=== PATIENT | male | born 1990 | race Caucasian/White ===

== ENCOUNTER 2021-06-09 06:14 | Emergency (ER) | payer SELFPAY ==
[2021-06-09 06:21] VITALS: BP 124/85; PULSE 64; RESP 16; TEMP 36.4; O2SAT 97; BMI 28.8
--- NOTE | 2021-06-09 06:24 | PC.NURSE ---
pt states he is allergic to all steroids and that they make him extremely violent
--- NOTE | 2021-06-09 07:25 | CT_ITS ---
WS: [id number] CT HEAD TECHNIQUE: Noncontrast CT of the head obtained from the skullbase to the vertex. CLINICAL INFORMATION: severe L BUSTILLOS/L ear pain COMPARISON: None. DLP: 861.[address] scans at [facility] use at least one of these dose optimization techniques: automated e xposure control; mA and/or kV adjustment per patient size (includes targeted exams where dose is matc hed to clinical indication); or iterative reconstruction. FINDINGS: No evidence of intracranial hemorrhage or mass effect. Ventricular system and basal cisterns are vilchis nt. No extra-axial fluid collections. No evidence of mass or mass effect. Normal mack-white different iation. Paranasal sinuses and mastoid air cells are well aerated. .Normal visualized soft tissues. CT/CT head wo con* [id number] IMPRESSION: 1. No evidence of intracranial hemorrhage or mass effect. 2. No acute intracranial findings.
--- NOTE | 2021-06-09 07:26 | ED_ITS ---
HPI - Headache General: Chief Complaint: Headache Stated Complaint: THROBBING HEAD PAIN Time Seen by Provider: 06/09/21 07:00 Source: patient Mode of arrival: ambulatory Limitations: no limitations History of Present Illness: HPI Narrative: Patient is a 30-year-old male who presents to ED today with a complaint of severe left otalgia and a left-sided headache. Patient states pain began a few days ago and he described as mild that was alleviated by taking OTC ibuprofen. He states over the past 24 hours pain has become constant and severe. He describes the pain as throbbing in nature. States pain radiates through left taoist, left ear, and left jaw. Patient states he has had headaches previously but nothing that was similar to this. He is currently rating his pain at a 9/10. He denies any ear discharge. No tinnitus or hearing loss. No dizziness/vertigo. No nausea/vomiting/gait instability. Reports pain is worse with light/sound. Denies brief excruciating shock-like pains. MD elicited complaint: headache Location: left Severity: severe Pain scale (0-10): 9 Quality & Timing: throbbing Exacerbating factors: light and noise Relieving factors: nothing Associated symptoms: Reports other (L ear pain); Deny chest pain, confusion, fever(s), malaise, nausea, rash or vomiting Review of Systems Const: Denies: fever(s), chills, body aches, fatigue or malaise Eyes: Reports: photophobia; Denies: change in vision, blurry vision, blind spots, eye discomfort, eye discharge, eye redness, floaters or seeing flashes ENMT: Reports: ear or mastoid pain; Denies: throat pain, odynophagia, dental pain, ear discharge, change in hearing, tinnitus, disequilibrium, nasal discharge, nasal congestion, epistaxis, post nasal drip or sinus pain Card: Denies: chest pain Resp: Denies: dyspnea GI: Denies: abdominal pain, nausea, vomiting or diarrhea Musc: Denies: neck pain Skin/Breast: Denies: rash Neuro: Reports: headache(s); Denies: numbness in extremities, weakness in extremities, sensory changes, dizziness, vertigo or confusion Physical Exam Const: COMMON NORMALS: average body habitus, patient oriented x3, no limitations, healthy appearing, alert and well nourished GENERAL APPEARANCE: cooperative and in distress (appears uncomfortable secondary to pain) ORIENTATION/CONSCIOUSNESS: Yes awake, Yes oriented to person, Yes oriented to place and Yes oriented to time HENMT: COMMON NORMALS: normocephalic, atraumatic, hearing grossly normal bilaterally, external ears normal, EAC's normal, TM's normal bilaterally and Normal external nose present HEAD & SCALP: normal to inspection, normocephalic and atraumatic FACE & SINUS: normal facial exam and sinuses nontender NOSE: Normal external nose present EXTERNAL EAR: Yes external ears normal EXTERNAL AUDITORY CANAL: EAC's normal TYMPANIC MEMBRANE: TM's normal bilaterally THROAT: posterior oropharynx normal OTHER: normal TMJ Eye: COMMON NORMALS: Equal, round and reactive pupils present and EOMs intact bilaterally GENERAL EYE: appearance normal, both eyes and all related structures PUPIL: Yes Equal, round and reactive pupils present Neck/C-Spine: COMMON NORMALS: full ROM and no lymphadenopathy GENERAL: Yes normal visual inspection, No anterior neck swelling and No submandibular swelling Neuro: PASHA COMA SCALE: document GCS findings [place] coma scale eye opening: Spontaneous [place] coma scale verbal response: Orientated [place] coma scale motor response: Obey commands [place] coma scale total score: 15 COMMON NORMALS: patient oriented x3, CN's II-XII intact bilaterally, moves all extremities, no focal motor deficits, no sensory deficits noted and gait normal SENSORIUM/ORIENTATION: Yes alert, Yes oriented to person, Yes oriented to place and Yes oriented to time Skin: COMMON NORMALS: no rashes or lesions noted GENERAL SKIN EXAM: no rashes or lesions noted Course Vital Signs: Vital signs: Vital Signs Temperature 97.6 F 06/09/21 06:21 Pulse Rate 60 06/09/21 09:31 Respiratory Rate 16 06/09/21 09:31 Blood Pressure 125/88 06/09/21 09:31 Pulse Oximetry 98 06/09/21 09:31 MDM - Headache MDM Narrative: Medical decision making narrative: BUSTILLOS down from a 02/21 to a 08/21. Will set up with PCP for further evaluation/treatment if HAs persist. Patient had normal ear exam. History is not consistent with trigeminal neuralgia, acoustic/vestibular neuritis, labyrinthitis, mastoiditis, acoustic neuroma, or giant cell arteritis. Return to ED precautions given. Discharge Plan Discharge Patient Disposition: Home Clinical Impression: Headache Qualifiers: Headache type: unspecified Headache chronicity pattern: acute headache Intractability: not intractable Qualified Code(s): R51.9 - Headache, unspecified Condition: Stable Discharge Orders: Discharge ED (Routine); Ordered 06/09/21 Ordered By: Goldie Mott Patient Instructions: Acute Headache (DC) Coding Level of Care Code ED Business Management Intern for Chg Fwd Exam Detailed
[2021-06-09] MEDS: ketorolac 60 mg/2 mL INJ 30 MG IVP (07:38)
[2021-06-09 07:39] VITALS: BP 133/85; PULSE 64; RESP 16; O2SAT 97
[2021-06-09] MEDS: ondansetron 2 mg/ML SDV 2 mL 4 MG IVP (07:39)
[2021-06-09] MEDS: diphenhydrAMINE 50 mg/mL SDV 1mL IVP (07:39)
[2021-06-09] MEDS: valproic acid inj 500 MG in sodium chloride 0.9% 50 ML 55 MG IV (09:29)
[2021-06-09 09:31] VITALS: BP 125/88; PULSE 60; RESP 16; O2SAT 98
--- NOTE | 2021-06-09 09:31 | PC.NURSE ---
PATIENT PHONE NUMBER [phone].
--- NOTE | 2021-06-10 10:19 | DCPLANNER ---
senior licensing manager had message to speak with patient about getting established with a primary care physician. senior licensing manager called and spoke with patient. He stated that he would like to get established with a primary care physician, he does not have insurance. senior licensing manager talked to patient about [facility], that the clinic has a financial reporting manager or sliding scale that patient can apply for. senior licensing manager offered to make a follow up appointment for patient, but patient stated that he would apply for the sliding scale and then schedule a follow up appointment.
== END 2021-06-09 10:22 | disposition home or self-care (01) ==
PROVIDERS: Emergency Provider Physician Assistant
DX: R51.9 Headache, unspecified (principal)
CPT/HCPCS: 70450; 96365; 96375; 99284; J1200; J1885; J2405

== ENCOUNTER → 2021-09-01 12:45 | Outpatient (BNVA) | payer SELFPAY | PROVIDERS: Visit Provider Registered Nurse Neonatal Intensive Care | DX: J02.0 Streptococcal pharyngitis (principal) | CPT/HCPCS: 87880 ==

== ENCOUNTER 2021-10-29 02:06 | Emergency (ER) | payer OTHER, SELFPAY ==
[2021-10-29] VITALS (13 sets, daily range): BP systolic 102–137; BP diastolic 69–97; PULSE 53–78; RESP 16–20; TEMP 36.7; O2SAT 94–98; BMI 28.8
--- NOTE | 2021-10-29 02:18 | W.ED.GENADLT ---
HPI - General Adult General: Chief complaint: General Medical Stated complaint: TMJ Time Seen by Provider: 10/29/21 02:16 History of Present Illness: Mr. Tapia is a 31-year-old gentleman with significant past medical history of known TMJ and cerebral palsy presenting to the emergency department due to jaw pain. Onset of symptoms was the past few days and gradually worsened. Left-sided jaw pain which is typical that radiates from the joint towards the anterior aspect of his jaw. This is spasming and grinding in nature. Occurs episodically. Overall course is worsened. Intensity is moderate to severe. He has tried [id number] medications with to really improve his symptoms however this failed to this time. He has had similar episodes in past. No trauma. No other specific changes in health, exacerbating, or alleviating factors identified. Onset (ago): day(s) Location: face and left Severity: severe Quality: other Pain Consistency: intermittent Relieving factors: none Exacerbating factors: none Review of Systems General: Reports: 10 or more systems reviewed and unremarkable except in HPI and below PFSH ED PFSH: Medical History Cerebral palsy TMJ (temporomandibular joint disorder) Physical Exam Const: COMMON NORMALS: alert GENERAL APPEARANCE: cooperative, well developed and in distress (Pain, and intermittent episodes of worsening) HENMT: COMMON NORMALS: normocephalic and atraumatic HEAD & SCALP: normocephalic and atraumatic Eye: COMMON NORMALS: conjunctivae normal CONJUNCTIVA: Yes conjunctivae normal SCLERA: sclerae normal Neck/C-Spine: COMMON NORMALS: supple GENERAL: Yes trachea midline Resp: COMMON NORMALS: clear to auscultation bilaterally EFFORT & INSPECTION: Yes able to speak in complete sentences AUSCULTATION: clear to auscultation bilaterally Cardio: COMMON NORMALS: regular rate and regular rhythm RATE: regular rate RHYTHM: regular rhythm GI: COMMON NORMALS: Soft to palpation PALPATION: Yes Soft to palpation and No Tenderness to palpation present (GI) Extremity: GENERAL: Yes normal exam except as noted and No edema Neuro: COMMON NORMALS: moves all extremities SENSORIUM/ORIENTATION: Yes alert and No Orientation impaired Psych: COMMON NORMALS: mental status grossly normal and Normal thought process present THOUGHT PROCESS: Normal thought process present Course ED course: - Patient was seen and evaluated by me at bedside - Patient placed on cardiac monitors, IV access obtained - Initial evaluation notable for exam as above - Symptom treatment ordered. Despite multiple rounds of treatment patient did have little improvement. Additional been ordered however imaging at this point felt to be necessary to better characterize disease process. - Imaging notable for no acute finding to explain symptoms. Patient does have dental caries however on physical exam no evidence of abscess or infection. - Upon serial reexamination after treatment the patient was mildly improved - Based on patient history, evaluation, and testing as interpreted the most likely cause of the patient's condition is muscle spasm secondary to TMJ disorder - The results of ED evaluation were discussed with the patient including prescriptions and/or symptomatic cares (if applicable) including appropriate and responsible use, followup plan, and return precautions. The patient verbalized understanding and felt safe for discharge. - Patient discharged in satisfactory condition. Note: Click bubbles or prepopulated puentes in note writing are used for assistance with data collection and billing and are inherently more limited than narrative and other text portions of this note. Please use narrative for additional clinical history and defer to narrative/free test for any case of contradictory information. If information appears in only free text or click bubble it should be considered present or absent as reported. Please contact note gag writer for clarifications of clinical information or contradictory information. MDM is a brief summary, contradictory or erroneous seeming information should be clarified and full note should be reviewed. Vital Signs: Vital signs: Vital Signs Temperature 98.0 F 10/29/21 02:12 Pulse Rate 53 L 10/29/21 07:16 Respiratory Rate 18 10/29/21 07:16 Blood Pressure 111/74 10/29/21 07:16 Pulse Oximetry 95 10/29/21 07:16 MDM - General Adult Medical Decision Making 31-year-old gentleman with history of known TMJ disorder presenting due to facial muscle spasms creating severe pain. Mild improvement with treatment however overall very difficult to control. Unfortunate limited further options for treatment and patient will get most benefit from outpatient follow-up. Medical Records I reviewed the patient's medical records. Lab Data I reviewed the patient's lab results. Radiology Impressions Face CT 10/29/21 03:38 IMPRESSION: 1. No definite acute facial bone/orbital fracture by CT. 2. No definite abnormality of the temporomandibular joints, within limits of exam. 3. Areas of fairly extensive dental caries involving both sides of mandible. 4. Paranasal sinus findings as discussed above. 5. Other details/findings discussed above. Head CT 10/29/21 03:38 IMPRESSION: 1. No acute intracranial hemorrhage or mass effect. 2. Other findings discussed above. 3. Please see subsequent CT Facial Bone report for complete evaluation of the facial bones. Discharge Plan Discharge Patient Disposition: Home Condition: Stable Prescriptions: New oxycodone 5 mg tablet 5 mg PO Q4H PRN (Reason: pain) Qty: 10 0RF tizanidine 2 mg capsule 2 mg PO Q8H PRN (Reason: muscle spasticity) Qty: 10 0RF No Action amoxicillin 500 mg capsule 500 mg PO BID 10 Days Qty: 20 0RF Discharge Orders: Discharge ED (Routine); Ordered 10/29/21 Ordered By: Lamberto Jauregui Discharge Diet: Usual diet Discharge Activity: Increase activity as tolerated Patient Instructions: Temporomandibular Disorder (ED), Opioid Safety Activity Restrictions/Additional Instructions: Thank you for visiting the emergency department. You were seen and evaluated for facial/jaw pain. The exact cause of your symptoms is unclear though given your reported history likely related to exacerbation of TMJ disorder. I do not see any other obvious acute abnormality related pain on your CT scans. You will be care of end prescription for pain medication and muscle relaxer. Please be cautious regarding sedating effects of both. Please follow-up with your primary care provider. Please return to the emergency department for anything that you are concerned about and feel needs emergency department evaluation. Coding Level of Care Code ED Transition Specialist for Michelle Chau
[2021-10-29] MEDS: cyclobenzaprine 10 mg Tablet PO (02:40)
[2021-10-29] MEDS: morphine 4 mg/mL SDV 1 mL IM (02:40)
[2021-10-29] MEDS: diazePAM 5 mg Tablet PO (03:12)
--- NOTE | 2021-10-29 03:38 | CTR_ITS ---
PROCEDURE INFORMATION: Exam: CT Head Without Contrast Exam date and time: 10/29/2021 4:12 AM Age: 31 years old Clinical indication: Other: Left mandible pain. Patient HX: C/O severe left sided mandible pain. History of tmj and cerebral palsy. ; Additional info: Severe L sided facial pain TECHNIQUE: Imaging protocol: Computed tomography of the head without contrast. Radiation optimization: All CT scans at this facility use at least one of these dose optimization techniques: automated exposure control; mA and/or kV adjustment per patient size (includes targeted exams where dose is matched to clinical indication); or iterative reconstruction. COMPARISON: CT head wo con* [id number] 06/09/2021 8:01 AM RADIATION DOSE METRICS: Total DLP (mGy-cm): 810.33 FINDINGS: Brain: No acute intracranial hemorrhage or mass effect. No definite acute infarct by CT. Cerebral ventricles: Ventricle size is normal for age. Paranasal sinuses: Mild mucosal thickening in the sphenoid sinus. Included paranasal sinuses otherwise appear essentially clear. Mastoid air cells: No significant acute finding. Bones/joints: No definite acute skull fracture. Soft tissues: No significant acute finding. CT/CT head wo con* [id number] IMPRESSION: 1. No acute intracranial hemorrhage or mass effect. 2. Other findings discussed above. 3. Please see subsequent CT Facial Bone report for complete evaluation of the facial bones.
--- NOTE | 2021-10-29 03:38 | CTR_ITS ---
PROCEDURE INFORMATION: Exam: CT Maxillofacial Without Contrast; Mandible Exam date and time: 10/29/2021 4:15 AM Age: 31 years old Clinical indication: Jaw pain; Patient HX: C/O severe left sided mandible pain. History of tmj and cerebral palsy. ; Additional info: Severe L sided facial pain TECHNIQUE: Imaging protocol: Computed tomography maxillofacial without contrast. Exam focused on the mandible. Radiation optimization: All CT scans at this facility use at least one of these dose optimization techniques: automated exposure control; mA and/or kV adjustment per patient size (includes targeted exams where dose is matched to clinical indication); or iterative reconstruction. COMPARISON: CT head wo con* [id number] 06/09/2021 8:01 AM RADIATION DOSE METRICS: Total DLP (mGy-cm): 714.01 FINDINGS: Orbital cavities: Orbital contents appear intact/unremarkable. Bones/joints: No definite evidence of acute facial bone fracture. No evidence for mandibular fracture. The temporomandibular joints appear in satisfactory position at this time. No significant arthritic changes involving the temporomandibular joints, within limits of CT evaluation. Paranasal sinuses: Mild mucosal thickening in the sphenoid sinus. Minimal mucosal thickening the maxillary sinuses. Included paranasal sinuses otherwise appear essentially clear. Soft tissues: The parotid and submandibular glands appear essentially unremarkable and symmetrical. Dental: Areas of fairly extensive dental caries involving both sides of mandible. CT/CT facial bones wo con* [id number] IMPRESSION: 1. No definite acute facial bone/orbital fracture by CT. 2. No definite abnormality of the temporomandibular joints, within limits of exam. 3. Areas of fairly extensive dental caries involving both sides of mandible. 4. Paranasal sinus findings as discussed above. 5. Other details/findings discussed above.
[2021-10-29] MEDS: ketorolac 30 mg/mL INJ IM (03:59)
[2021-10-29] MEDS: fentaNYL 50 mcg/mL INJ 2mL IVP ×2 (04:02→06:28)
[2021-10-29] MEDS: valproic acid inj 500 MG in sodium chloride 0.9% 50 ML 55 MG IV (04:44)
== END 2021-10-29 07:20 | disposition home or self-care (01) ==
PROVIDERS: Emergency Provider Emergency Medicine
DX: M26.602 Left temporomandibular joint disorder, unspecified (principal); G80.9 Cerebral palsy, unspecified
CPT/HCPCS: 70450; 70486; 96365; 96372; 96375; 96376; 99284; J1885; J2270; J2930; J3010